=== PATIENT | female | born 1970 | race Caucasian/White ===

== ENCOUNTER 2019-12-15 18:51 | Inpatient (IN) | payer OTHER, SELFPAY ==
[2019-12-15] VITALS (48 sets, daily range): BP systolic 112–174; BP diastolic 58–116; PULSE 83–102; RESP 12–24; TEMP 36.9; O2SAT 92–98; BMI 44.4
--- NOTE | 2019-12-15 18:57 | ED_ITS ---
Entered by Ysabel Padilla, acting as scribe for Tisha Kaur MD, [facility] [place] H[place] - Psych General: Chief Complaint: Psychiatric Symptoms Stated Complaint: SI ATTEMPT Time Seen by Provider: 12/15/19 18:56 Source: patient and RN notes reviewed Mode of arrival: EMS Limitations: no limitations History of Present Illness: HPI Narrative: 49 yo female presents to ED with suicidal attempt. The patient states she has been trying to get SSD. She is in chronic pain every day. She said she cannot do anything for herself or her (cook, clean, bathe). She said her spouse has had multiple surgeries and she said her health is too much on him. She said she OD on her insulin - Humalog 120 units at 1730. She said she received her 3rd denial from SSD today and it pushed her over the edge. She said she is sick of the pain and worrying. She said she wanted to but she did volunteer to come over here and talk to somebody. complaint: suicidal ideation and feels depressed Onset (ago): hour(s) (2 (1730)) Duration: constant and getting worse History of same: No Relieving factors: none Exacerbating factors: none Context: significant life stressor and other (OD on Humalog) Associated psychiatric symptoms: depression and suicidal ideation Associated symptoms: Reports depression and suicidal ideation Treatments prior to arrival: none If self harm: admits thoughts of self harm, has plan, has acted on plan and intentional overdose Details of plan: overdose on Humalog 120 units at 1730 Review of Systems General: Reports: 10 or more systems reviewed and unremarkable except in HPI and below Const: Denies: fever, chills or body aches Eyes: Denies: change in vision or blurry vision ENMT: Denies: throat pain, enlarged tonsils, painful swallowing, hoarseness, mouth pain or swelling of lips/tongue Card: Reports: chest pain; Denies: palpitations, irregular heart rhythm, edema or swelling of feet/ankles Resp: Denies: shortness of breath, productive cough or non-productive cough GI: Denies: abdominal pain, nausea or vomiting : Denies: flank pain, difficulty urinating, painful urination, urinary frequency, urinary urgency or urinary hesitancy Musc: Denies: neck pain, back pain or extremity swelling Skin/Breast: Denies: rash, itching or redness Neuro: Denies: headache, numbness in extremities or weakness in extremities Psych: Reports: depression and suicidal ideation Endo: Denies: excessive urination PFSH ED PFSH: Social History Smoking and tobacco status: current every day smoker Physical Exam Const: COMMON NORMALS: no apparent distress, average body habitus, oriented x3, no limitations, healthy appearing, alert and well nourished HENMT: COMMON NORMALS: normocephalic, head/scalp atraumatic and moist oral mucous membranes HEAD & SCALP: normocephalic and atraumatic Eye: COMMON NORMALS: PERRL, EOMs intact bilaterally, conjunctivae normal and no scleral icterus CONJUNCTIVA: Yes conjunctivae normal PUPIL: Yes PERRL Neck/C-Spine: COMMON NORMALS: full ROM, supple, no meningeal signs, no JVD and no carotid bruits Chest: COMMONS NORMALS: inspection of chest normal and palpation of chest normal Resp: COMMON NORMALS: normal respiratory effort, no retractions, no use of ac cessory muscles, clear to auscultation bilaterally and percussion normal AUSCULTATION: clear to auscultation bilaterally PERCUSSION: percussion normal Cardio: COMMON NORMALS: no JVD, regular rate, regular rhythm, S1 normal heart sound, S2 normal heart sound, no gallops, no clicks, no murmurs, no rub and peripheral pulses 2+ throughout RATE: regular rate RHYTHM: regular rhythm HEART SOUNDS: S1 normal and S2 normal PERIPHERAL PULSES: pulses 2+ throughout GI: COMMON NORMALS: normal to inspection, nondistended, normoactive bowel sounds, soft to palpation, non-tender, no hepatosplenomegaly, no masses and no bruits PALPATION: Yes soft and Yes no hepatosplenomegaly : COMMON NORMALS: Yes no CVA tenderness BLADDER/KIDNEY EXAM: Yes no CVA tenderness Back/Pelvis: COMMON NORMALS: no CVA tenderness Extremity: COMMON NORMALS: normal to inspection, full ROM, normal capillary refill, no calf tenderness and no pedal edema Neuro: COMMON NORMALS: oriented x3 SENSORIUM/ORIENTATION: Yes alert MENINGEAL SIGNS: Yes no meningeal signs Skin: COMMON NORMALS: no rashes or lesions noted, no wounds, skin turgor normal, no jaundice, no petechiae and no mottling GENERAL SKIN EXAM: no rashes or lesions noted and turgor normal MDM - Psych MDM Narrative: Medical decision making narrative: 49 year old patient with a suicide attempt. She has a lot of social issues and today received a third rejection letter for disability. This was the final straw and she thought she would be better off . She therefore injected herself with 120 units of short acting insulin. She was hypoglycemic on arrival and was given intravenous dextrose. She also ate a meal here in the ED. She is medically cleared and admitted to the NPU for further evaluation and management. Medical Records: Attestation: I reviewed the patient's medical records. Lab Data: Attestation: I reviewed the patient's lab results. Labs: Lab Results 12/15/19 12/15/19 12/15/19 Range/Units 19:18 19:18 19:22 WBC 10.5 H (4.0-10.0) 10^3/ uL RBC 4.78 (4.1-5.3) 10^6/u L Hgb 11.1 L (11.5-15.3) g/dL Hct 38.3 (37.0-47.0) % MCV 80.1 L (81-99) fL MCH 23.2 L (28.0-34.0) pg MCHC 29.0 L (30.0-36.0) g/dL RDW 17.0 H (12.1-15.1) % Plt Count 357 (130-400) 10^3/c mm MPV 11.9 H (7.4-10.4) fL Neut % (Auto) 62.8 % Lymph % (Auto) 33.0 % Navarro % (Auto) 2.1 % Eos % (Auto) 1.0 % Baso % (Auto) 0.3 % Neut # (Auto) 6.6 (1.8-7.7) 10^3/u L Lymph # (Auto) 3.5 (0.8-4.8) 10^3/u L Navarro # (Auto) 0.2 (0.2-0.9) 10^3/u L Eos # (Auto) 0.1 (0.0-0.8) 10^3/u L Baso # (Auto) 0.0 (0.0-0.1) 10^3/u L Nucleated RBC % (a uto) 0 % Nucleated RBCs # 0.0 /100WBC Sodium 133 L (136-145) mmol/L Potassium 4.0 (3.5-5.1) mmol/L Chloride 95 L (98-107) mmol/L Carbon Dioxide 25 (22-29) mmol/L Anion Gap 17.0 (5-19) BUN 19 (6-20) mg/dL Creatinine 0.7 (0.5-0.9) mg/dL GFR Calculation 88.9 L (90-130) mL/min Glucose 107 (65-115) mg/dL POC Glucose 43 (70-110) mg/dL Calcium 9.9 (8.5-10.5) mg/dL Total Bilirubin 0.3 (0.15-1.2) mg/dL AST 18 (0-32) U/L ALT 20 (0-33) U/L Alkaline Phosphata se 177 H (35-105) IU/L Total Protein 7.9 (6.6-8.7) g/dL Albumin 4.7 (3.5-5.2) g/dL Globulin 3.2 (1.3-4.6) g/dL TSH 3.18 (0.27-4.20) uIU/ mL HCG, Qual (Negative) Urine Color (Yellow) Urine Appearance (CLEAR) Urine pH (5-7) Ur Specific Gravit y (1.005-1.030) Urine Protein (Negative) Urine Glucose (UA) (Normal) Urine Ketones (Negative) Urine Blood (Negative) Urine Nitrate (Negative) Urine Bilirubin (NEGATIVE) Urine Urobilinogen (Negative) mg/dL Ur Leukocyte Belkis ase (Negative) Urine RBC (0-2) /hpf Urine WBC (0-5) /hpf Ur Squamous Epith Cells (0-5) Urine Bacteria (NONE) Coarse Granular Ca sts /lpf Salicylates < 0.3 L (3-10) mg/dL Urine Opiates Scre en (Negative) ng/mL Acetaminophen < 5.0 L (10-30) ug/mL Ur Barbiturates Sc reen (Negative) ng/mL Ur Phencyclidine S crn (Negative) ng/mL Ur Amphetamines Sc reen (Negative) ng/mL U Benzodiazepines Scrn (Negative) ng/mL Urine Cocaine Scre en (Negative) ng/mL U Marijuana (THC) Screen (Negative) ng/mL Ethyl Alcohol < 10 (0-10) mg/dL 12/15/19 12/15/19 12/15/19 Range/Units 20:16 21:05 22:33 WBC (4.0-10.0) 10^3/ uL RBC (4.1-5.3) 10^6/u L Hgb (11.5-15.3) g/dL Hct (37.0-47.0) % MCV (81-99) fL MCH (28.0-34.0) pg MCHC (30.0-36.0) g/dL RDW (12.1-15.1) % Plt Count (130-400) 10^3/c mm MPV (7.4-10.4) fL Neut % (Auto) % Lymph % (Auto) % Navarro % (Auto) % Eos % (Auto) % Baso % (Auto) % Neut # (Auto) (1.8-7.7) 10^3/u L Lymph # (Auto) (0.8-4.8) 10^3/u L Navarro # (Auto) (0.2-0.9) 10^3/u L Eos # (Auto) (0.0-0.8) 10^3/u L Baso # (Auto) (0.0-0.1) 10^3/u L Nucleated RBC % (a uto) % Nucleated RBCs # /100WBC Sodium (136-145) mmol/L Potassium (3.5-5.1) mmol/L Chloride (98-107) mmol/L Carbon Dioxide (22-29) mmol/L Anion Gap (5-19) BUN (6-20) mg/dL Creatinine (0.5-0.9) mg/dL GFR Calculation (90-130) mL/min Glucose (65-115) mg/dL POC Glucose 44 160 (70-110) mg/dL Calcium (8.5-10.5) mg/dL Total Bilirubin (0.15-1.2) mg/dL AST (0-32) U/L ALT (0-33) U/L Alkaline Phosphata se (35-105) IU/L Total Protein (6.6-8.7) g/dL Albumin (3.5-5.2) g/dL Globulin (1.3-4.6) g/dL TSH (0.27-4.20) uIU/ mL HCG, Qual Negative (Negative) Urine Color (Yellow) Urine Appearance (CLEAR) Urine pH (5-7) Ur Specific Gravit y (1.005-1.030) Urine Protein (Negative) Urine Glucose (UA) (Normal) Urine Ketones (Negative) Urine Blood (Negative) Urine Nitrate (Negative) Urine Bilirubin (NEGATIVE) Urine Urobilinogen (Negative) mg/dL Ur Leukocyte Belkis ase (Negative) Urine RBC (0-2) /hpf Urine WBC (0-5) /hpf Ur Squamous Epith Cells (0-5) Urine Bacteria (NONE) Coarse Granular Ca sts /lpf Salicylates (3-10) mg/dL Urine Opiates Scre en (Negative) ng/mL Acetaminophen (10-30) ug/mL Ur Barbiturates Sc reen (Negative) ng/mL Ur Phencyclidine S crn (Negative) ng/mL Ur Amphetamines Sc reen (Negative) ng/mL U Benzodiazepines Scrn (Negative) ng/mL Urine Cocaine Scre en (Negative) ng/mL U Marijuana (THC) Screen (Negative) ng/mL Ethyl Alcohol (0-10) mg/dL 12/15/19 12/15/19 12/15/19 Range/Units 22:33 22:33 22:37 WBC (4.0-10.0) 10^3/ uL RBC (4.1-5.3) 10^6/u L Hgb (11.5-15.3) g/dL Hct (37.0-47.0) % MCV (81-99) fL MCH (28.0-34.0) pg MCHC (30.0-36.0) g/dL RDW (12.1-15.1) % Plt Count (130-400) 10^3/c mm MPV (7.4-10.4) fL Neut % (Auto) % Lymph % (Auto) % Navarro % (Auto) % Eos % (Auto) % Baso % (Auto) % Neut # (Auto) (1.8-7.7) 10^3/u L Lymph # (Auto) (0.8-4.8) 10^3/u L Navarro # (Auto) (0.2-0.9) 10^3/u L Eos # (Auto) (0.0-0.8) 10^3/u L Baso # (Auto) (0.0-0.1) 10^3/u L Nucleated RBC % (a uto) % Nucleated RBCs # /100WBC Sodium (136-145) mmol/L Potassium (3.5-5.1) mmol/L Chloride (98-107) mmol/L Carbon Dioxide (22-29) mmol/L Anion Gap (5-19) BUN (6-20) mg/dL Creatinine (0.5-0.9) mg/dL GFR Calculation (90-130) mL/min Glucose (65-115) mg/dL POC Glucose 181 (70-110) mg/dL Calcium (8.5-10.5) mg/dL Total Bilirubin (0.15-1.2) mg/dL AST (0-32) U/L ALT (0-33) U/L Alkaline Phosphata se (35-105) IU/L Total Protein (6.6-8.7) g/dL Albumin (3.5-5.2) g/dL Globulin (1.3-4.6) g/dL TSH (0.27-4.20) uIU/ mL HCG, Qual (Negative) Urine Color Straw (Yellow) Urine Appearance Clear (CLEAR) Urine pH 5 (5-7) Ur Specific Gravit y 1.010 (1.005-1.030) Urine Protein Neg (Negative) Urine Glucose (UA) 4+ H (Normal) Urine Ketones Negative (Negative) Urine Blood Trace H (Negative) Urine Nitrate Negative (Negative) Urine Bilirubin Neg (NEGATIVE) Urine Urobilinogen Norm (Negative) mg/dL Ur Leukocyte Belkis ase Negative (Negative) Urine RBC Rare (0-2) /hpf Urine WBC 0-4 H (0-5) /hpf Ur Squamous Epith Cells 5-10 H (0-5) Urine Bacteria 1+ H (NONE) Coarse Granular Ca sts Rare /lpf Salicylates (3-10) mg/dL Urine Opiates Scre en Negative (Negative) ng/mL Acetaminophen (10-30) ug/mL Ur Barbiturates Sc reen Negative (Negative) ng/mL Ur Phencyclidine S crn Negative (Negative) ng/mL Ur Amphetamines Sc reen Negative (Negative) ng/mL U Benzodiazepines Scrn Positive H (Negative) ng/mL Urine Cocaine Scre en Negative (Negative) ng/mL U Marijuana (THC) Screen Negative (Negative) ng/mL Ethyl Alcohol (0-10) mg/dL Discharge Plan Discharge Patient Disposition: Admitted As Inpatient Clinical Impression: Suicide attempt by drug overdose Condition: Stable Referrals: Eugene Caldwell DO [Family Provider] - Coding Level of Care Code ED Program Management Professional for Chg Fwd Exam Comprehensive The documentation recorded by the Randy adler Valerie R, accurately reflects the service I personally performed and the decisions made by , Tisha Kaur MD, [facility] [place] Dec 15, 2019 18:51
--- NOTE | 2019-12-15 19:04 | PC.NURSE ---
PATIENT STATES SHE OVERDOSED ON HER HUMALOG INSULIN, 120 UNITS, HOPING TO BEFORE ANYONE GOT THERE TO FIND HER. PATIENT STATES HER CAME HOME AND SHE TOLD HIM WHAT SHE HAD DONE AND HE CALLED THE AMBULANCE FOR HER. PATIENT STATES SHE GOT A THIRD DENIAL LETTER FOR SOCIAL SECURITY TODAY. WHEN ASKED IF SHE WANTS TO HURT HERSELF STILL PATIENT STATES AT THIS POINT I AM JUST TOO WEAK . PATIENT STATES SHE PROBABLY WOULD NOT WANT TO HURT HERSELF ANYMORE WHEN ASKED IF SHE WASN'T FEELING TOO WEAK IF SHE WOULD HURT HERSELF.
--- NOTE | 2019-12-15 19:29 | PC.NURSE ---
PATIENTS BEDSIDE BLOOD GLUCOSE TEST PERFORMED BY NURSE AND VALUE READ OF 43. HCP NOTIFIED AND PATIENT MEDICATED ACCORDINGLY PER HCP VERBAL ORDERS
--- NOTE | 2019-12-15 19:33 | PC.NURSE ---
PATIENT GIVEN 25ML D50 PER HCP VERBAL ORDER.
[2019-12-15 19:37] LABS: Glucose Point of Care 43 mg/dL (70-110)
--- NOTE | 2019-12-15 19:48 | ECG_ITS ---
Measurements Intervals [place] Rate: 87 P: 23 SD: 158 QRS: 38 QRSD: 104 T: 27 QT: 391 QTc: 472 SINUS RHYTHM No previous ECG available for comparison Electronically Signed On 12-16-2019 13:21:44 IMPLEMENTATION ENGINEER by Cara Recinos M.D. [email or web address]
[2019-12-15 20:12] LABS: Basophils % 0.3 %; Eosinophils # 0.1 10^3/uL (0.0-0.8); Hematocrit 38.3 % (37.0-47.0); Hemoglobin 11.1 g/dL (11.5-15.3); Lymphocytes # 3.5 10^3/uL (0.8-4.8); Mean Corpuscular Hemoglobin 23.2 pg (28.0-34.0); Mean Corpuscular Volume 80.1 fL (81-99); Mean Platelet Volume 11.9 fL (7.4-10.4); Monocytes # 0.2 10^3/uL (0.2-0.9); Monocytes % 2.1 %; Neutrophils # 6.6 10^3/uL (1.8-7.7); Neutrophils % 62.8 %; Nucleated Red Blood Cells % 0 %; Platelet Count 357 10^3/cmm (130-400); Red Blood Count 4.78 10^6/uL (4.1-5.3); White Blood Count 10.5 10^3/uL (4.0-10.0)
--- NOTE | 2019-12-15 20:19 | PC.NURSE ---
BEDSIDE BLOOD GLUCOSE TAKEN BY NURSE, VALUE 44. HCP NOTIFIED
[2019-12-15] MEDS: dextrose 10% 1,000 ML 100 ML IV (20:23)
[2019-12-15 20:28] LABS: Glucose Point of Care 44 mg/dL (70-110)
[2019-12-15 20:37] LABS: Alanine Aminotransferase 20 U/L (0-33); Albumin Level 4.7 g/dL (3.5-5.2); Alkaline Phosphatase 177 IU/L (35-105); Aspartate Amino Transferase 18 U/L (0-32); Blood Urea Nitrogen 19 mg/dL (6-20); Calcium 9.9 mg/dL (8.5-10.5); Carbon Dioxide 25 mmol/L (22-29); Chloride 95 mmol/L (98-107); Creatinine Clr Calc Pharmacy 113.7984; Globulin 3.2 g/dL (1.3-4.6); Glomerular Filtration Rate 88.9 mL/min (90-130); Glucose 107 mg/dL (65-115); Sodium 133 mmol/L (136-145); Thyroid Stimulating Hormone 3.18 uIU/mL (0.27-4.20); Total Bilirubin 0.3 mg/dL (0.15-1.2); Total Protein 7.9 g/dL (6.6-8.7)
--- NOTE | 2019-12-15 21:10 | PC.NURSE ---
PATIENT AMBULATED TO BATHROOM WITH SITTER TO TRY TO GIVE URINE SAMPLE CLEAN CATCH
[2019-12-15 21:14] LABS: Glucose Point of Care 160 mg/dL (70-110)
[2019-12-15 21:31] LABS: Acetaminophen < 5.0 ug/mL (10-30); Alcohol Level < 10 mg/dL (0-10); Salicylate < 0.3 mg/dL (3-10)
--- NOTE | 2019-12-15 22:30 | PC.NURSE ---
IN BATHROOM ATTEMPTING TO PEE
--- NOTE | 2019-12-15 22:38 | PC.NURSE ---
BG 181 TAKEN AT BEDSIDE BY NURSE
[2019-12-15 22:42] LABS: Glucose Point of Care 181 mg/dL (70-110)
[2019-12-15 22:43] LABS: Add Urine Microscopic? YES; Bilirubin Urine Neg (NEGATIVE); Blood Urine Trace (Negative); Glucose Urine UA 4+ (Normal); Ketones Urine Negative (Negative); Leukocyte Esterase Urine Negative (Negative); Nitrate Urine Negative (Negative); Protein Urine Neg (Negative); Urine Appearance Clear (CLEAR); Urine Color Straw (Yellow); Urobilinogen Urine Norm (Negative); pH Urine 5 (5-7)
[2019-12-15 22:45] LABS: HCG Qualitative Urine. Negative (Negative)
[2019-12-15 22:50] LABS: Add Urine Culture? No; Amphetamines Screen Urine Negative (Negative); Bacteria Urine 1+; Barbiturates Screen Urine Negative (Negative); Benzodiazepines Screen Urine Positive (Negative); Coarse Granular Casts Urine RARE /lpf; Cocaine Screen Urine Negative (Negative); PCP Screen Urine Negative (Negative); RBC Urine RARE /hpf (0-2); THC Screen Urine Negative (Negative); WBC Urine 0-4 /hpf (0-5)
[2019-12-15 22:51] LABS: Opiate Screen Urine Negative (Negative)
[2019-12-16 00:40] VITALS: BP 138/79; PULSE 95; RESP 18; TEMP 36.7; O2SAT 100
[2019-12-16 06:00] VITALS: BP 169/96; PULSE 115; RESP 17; TEMP 36.8; O2SAT 91
[2019-12-16 07:16] LABS: Glucose Point of Care 207 mg/dL (70-110)
[2019-12-16] MEDS: metformin 500 mg Tablet 1000 MG PO ×2 (07:57→16:53)
[2019-12-16] MEDS: acetaminophen 325 mg Tablet 650 MG PO (07:59)
[2019-12-16] MEDS: lisinopril 20 mg Tablet 40 MG PO (09:26)
[2019-12-16] MEDS: pantoprazole DR 40 mg Tablet PO (09:26)
[2019-12-16] MEDS: buPROPion XL (24 HR) 300 mg Tablet PO (09:26)
[2019-12-16] MEDS: duloxetine 60 mg Capsule PO (09:26)
[2019-12-16] MEDS: atorvastatin 40 mg Tablet 20 MG PO (09:27)
[2019-12-16] MEDS: metoprolol succinate ER (24 HR) 100 mg Tablet PO (09:53)
[2019-12-16 11:43] LABS: Glucose Point of Care 200 mg/dL (70-110)
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
[2019-12-16 14:00] VITALS: BP 114/76; PULSE 82; RESP 20; TEMP 37.1; O2SAT 100
[2019-12-16] MEDS: fixodent 39 gm Tube 1 APPLIC DENTAL (16:05)
[2019-12-16 16:49] LABS: Glucose Point of Care 189 mg/dL (70-110)
[2019-12-16 22:00] VITALS: BP 121/71; PULSE 82; RESP 17; TEMP 36.6; O2SAT 94
[2019-12-17 06:00] VITALS: BP 123/81; PULSE 92; RESP 18; TEMP 36.6; O2SAT 96
[2019-12-17 06:49] LABS: Glucose Point of Care 211 mg/dL (70-110)
[2019-12-17] MEDS: metformin 500 mg Tablet 1000 MG PO ×2 (07:47→18:07)
[2019-12-17] MEDS: atorvastatin 40 mg Tablet 20 MG PO (10:29)
[2019-12-17] MEDS: duloxetine 60 mg Capsule PO (10:31)
[2019-12-17] MEDS: buPROPion XL (24 HR) 300 mg Tablet PO (10:31)
[2019-12-17] MEDS: lisinopril 20 mg Tablet 40 MG PO (10:31)
[2019-12-17] MEDS: metoprolol succinate ER (24 HR) 100 mg Tablet PO (10:32)
[2019-12-17] MEDS: pantoprazole DR 40 mg Tablet PO (10:32)
[2019-12-17 12:06] LABS: Glucose Point of Care 253 mg/dL (70-110)
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
[2019-12-17 13:57] VITALS: BP 114/74; PULSE 90; RESP 18; TEMP 36.9; O2SAT 97
[2019-12-17 16:48] LABS: Glucose Point of Care 210 mg/dL (70-110)
[2019-12-17 22:00] VITALS: BP 138/82; PULSE 88; RESP 17; TEMP 36.6; O2SAT 97
[2019-12-18 06:00] VITALS: BP 160/83; PULSE 97; RESP 18; TEMP 36.6; O2SAT 94
[2019-12-18 06:45] LABS: Glucose Point of Care 273 mg/dL (70-110)
--- NOTE | 2019-12-18 07:05 | PM.NPN ---
Subjective NPU Subjective: Interval history: Jamilah presented today reporting that things are going better. She reports that the medication made her stomach a little upset. Otherwise she is tolerating the introduction of the medication. She reports that she is feeling better and that she is denying any major issues. She reports that she is eating and sleeping fine. We discussed the risks, benefits and alternatives of discharging tomorrow and she understood and agreed to proceed as is documented in this note. Mental Status Exam MSE Comments: This is an obese, versus morbidly obese, white female, with adequate dress, grooming, and eye contact. No abnormal movements. Cooperative with exam in no acute distress. Speech was normal rate and volume. Mood described as much better affect congruent. Thought process, organized. Thought content: patient denied any suicidal or homicidal ideation, there were no delusions reported or noted, patient denied any auditory or visual hallucinations. Attention, concentration, and memory appeared intact but were not formally tested. Alert and oriented times three. Insight and judgment are fair and improving. Vitals/I&O/Wt Last Vital Signs Temperature 97.8, pulse 97, blood pressure 160/83, respirations 18, pulse ox 94%. Data NPU : 12/15/19 19:18 12/15/19 19:18 A&P Assessment and plan (1) Adjustment disorder with mixed disturbance of emotions and conduct: Status: Acute Code(s): F43.25 - Adjustment disorder with mixed disturbance of emotions and conduct (2) Major depressive disorder: Status: Acute Code(s): F32.9 - Major depressive disorder, single episode, unspecified Additional A&P Information This is a 49-year-old white female with a long history of medical comorbidities and history of childhood trauma presents status post suicide attempts with concerns related to finances and not getting disability, her 's health and the disintegration of her relationship with her children and grandchildren. 1. Continue current medication. 2. Encourage individual, group and milieu therapy. 3. Continue every 15 minute checks for safety. 4. Encourage ongoing mental health treatment after discharge including a therapist. Involuntary Hold Information 96 Hour Hold: 96 Hour Involuntary Admission: No Attestations NPU Medical Necessity Statement*: Inpatient hospitalization is medically necessary in the clinically appropriate intervention at this time. We will initiate and monitor medications adjusting as indicated. Plan for discharge tomorrow. Coding Level of Care Code Acute Operations Lieutenant for Prabhakar De Anda Diagnoses Adjustment disorder with mixed disturbance of emotions and conduct F43.25 Major depressive disorder F32.9
[2019-12-18] MEDS: metformin 500 mg Tablet 1000 MG PO ×2 (08:27→17:35)
[2019-12-18] MEDS: atorvastatin 40 mg Tablet 20 MG PO (08:27)
[2019-12-18] MEDS: buPROPion XL (24 HR) 150 mg Tablet 450 MG PO (08:27)
[2019-12-18] MEDS: pantoprazole DR 40 mg Tablet PO (08:30)
[2019-12-18] MEDS: duloxetine 60 mg Capsule PO (08:30)
[2019-12-18] MEDS: ARIPiprazole 10 mg Tablet 5 MG PO (08:32)
[2019-12-18] MEDS: lisinopril 20 mg Tablet 40 MG PO (08:32)
[2019-12-18] MEDS: metoprolol succinate ER (24 HR) 100 mg Tablet PO (09:00)
[2019-12-18 11:33] LABS: Glucose Point of Care 266 mg/dL (70-110)
[2019-12-18 14:00] VITALS: BP 87/53; PULSE 86; RESP 18; TEMP 36.7; O2SAT 96
[2019-12-18 16:54] LABS: Glucose Point of Care 222 mg/dL (70-110)
[2019-12-18 20:23] LABS: Glucose Point of Care 244 mg/dL (70-110)
[2019-12-18 20:25] VITALS: BP 114/76; PULSE 82; RESP 18; TEMP 36.6; O2SAT 99
[2019-12-19] MEDS: acetaminophen 325 mg Tablet 650 MG PO (02:27)
--- NOTE | 2019-12-19 02:29 | PC.NURSE ---
Tylenol given for back and neck pain rated at 7/10.
[2019-12-19 05:51] VITALS: BP 154/93; PULSE 107; RESP 19; TEMP 36.6; O2SAT 995
[2019-12-19 06:23] LABS: Glucose Point of Care 248 mg/dL (70-110)
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
[2019-12-19 07:37] VITALS: BP 154/93; PULSE 107; RESP 19; TEMP 36.6; O2SAT 995
[2019-12-19] MEDS: fixodent 39 gm Tube 1 APPLIC DENTAL (07:51)
[2019-12-19] MEDS: metformin 500 mg Tablet 1000 MG PO (08:27)
[2019-12-19] MEDS: ARIPiprazole 10 mg Tablet 5 MG PO (08:27)
[2019-12-19] MEDS: atorvastatin 40 mg Tablet 20 MG PO (08:29)
[2019-12-19] MEDS: buPROPion XL (24 HR) 150 mg Tablet 450 MG PO (08:30)
[2019-12-19] MEDS: duloxetine 60 mg Capsule PO (08:30)
[2019-12-19] MEDS: lisinopril 20 mg Tablet 40 MG PO (08:31)
[2019-12-19] MEDS: pantoprazole DR 40 mg Tablet PO (08:32)
[2019-12-19] MEDS: metoprolol succinate ER (24 HR) 100 mg Tablet PO (08:32)
== END 2019-12-19 10:29 | disposition home or self-care (01) | DRG 881 ==
LOC: ER 23:07 → NP 23:26
PROVIDERS: Admitting Provider Psychiatry & Neurology Psychiatry; Emergency Provider Family Medicine; Family Provider Family Medicine; Visit Provider Psychiatry & Neurology Psychiatry
DX: F32.9 Major depressive disorder, single episode, unspecified (principal); Z68.41 Body mass index [BMI] 40.0-44.9, adult; F43.25 Adjustment disorder with mixed disturbance of emotions and conduct; Z79.899 Other long term (current) drug therapy; Z79.4 Long term (current) use of insulin; Z88.8 Allergy status to other drugs, medicaments and biological substances; E66.01 Morbid (severe) obesity due to excess calories
CPT/HCPCS: 12345; 36416; 80053; 80307; 81001; 81025; 82962; 84443; 85025; 93005; 96372; 96374; 96375; 99285; J1815; J7799

== ENCOUNTER → 2020-01-09 08:18 | Outpatient (BNVA) | payer OTHER, SELFPAY | PROVIDERS: Family Provider Family Medicine; Visit Provider Counselor Professional | DX: F33.2 Major depressive disorder, recurrent severe without psychotic features (principal); F41.1 Generalized anxiety disorder | CPT/HCPCS: 90834 ==

== ENCOUNTER → 2020-01-16 08:00 | Outpatient (BNVA) | payer OTHER, SELFPAY | PROVIDERS: Family Provider Family Medicine; Visit Provider Counselor Professional | DX: F33.2 Major depressive disorder, recurrent severe without psychotic features (principal); F41.1 Generalized anxiety disorder | CPT/HCPCS: 90834 ==

== ENCOUNTER → 2020-01-23 08:00 | Outpatient (BNVA) | payer OTHER, SELFPAY | PROVIDERS: Family Provider Family Medicine; Visit Provider Counselor Professional | DX: F33.2 Major depressive disorder, recurrent severe without psychotic features (principal); F43.12 Post-traumatic stress disorder, chronic | CPT/HCPCS: 90834 ==

== ENCOUNTER → 2020-02-11 14:07 | Outpatient (BNVA) | payer OTHER, SELFPAY | PROVIDERS: Family Provider Family Medicine; Visit Provider Counselor Professional | DX: F33.2 Major depressive disorder, recurrent severe without psychotic features (principal); F43.12 Post-traumatic stress disorder, chronic | CPT/HCPCS: 90834 ==

== ENCOUNTER → 2020-02-25 08:10 | Outpatient (BNVA) | payer OTHER, SELFPAY | PROVIDERS: Family Provider Family Medicine; Visit Provider Counselor Professional | DX: F43.12 Post-traumatic stress disorder, chronic (principal); F33.2 Major depressive disorder, recurrent severe without psychotic features | CPT/HCPCS: 90834 ==

== ENCOUNTER → 2020-03-05 13:29 | Outpatient (BNVA) | payer OTHER, SELFPAY | PROVIDERS: Family Provider Family Medicine; Visit Provider Psychiatry & Neurology Psychiatry | DX: F33.2 Major depressive disorder, recurrent severe without psychotic features (principal); F41.1 Generalized anxiety disorder; F17.200 Nicotine dependence, unspecified, uncomplicated | CPT/HCPCS: 99204 ==

== ENCOUNTER → 2020-03-10 08:18 | Outpatient (BNVA) | payer OTHER, SELFPAY | PROVIDERS: Family Provider Family Medicine; Visit Provider Counselor Professional | DX: F43.12 Post-traumatic stress disorder, chronic (principal); F33.2 Major depressive disorder, recurrent severe without psychotic features | CPT/HCPCS: 90834 ==

== ENCOUNTER → 2020-03-24 08:03 | Outpatient (BNVA) | payer OTHER, SELFPAY | PROVIDERS: Family Provider Family Medicine; Visit Provider Counselor Professional | DX: F43.12 Post-traumatic stress disorder, chronic (principal); F33.2 Major depressive disorder, recurrent severe without psychotic features | CPT/HCPCS: 90834 ==

== ENCOUNTER → 2020-04-07 08:05 | Outpatient (BNVA) | payer OTHER, SELFPAY | PROVIDERS: Family Provider Family Medicine; Visit Provider Counselor Professional | DX: F43.12 Post-traumatic stress disorder, chronic (principal); F33.2 Major depressive disorder, recurrent severe without psychotic features | CPT/HCPCS: 90834 ==

== ENCOUNTER → 2020-05-10 08:09 | Outpatient (BNVA) | payer OTHER, SELFPAY | PROVIDERS: Family Provider Family Medicine; Visit Provider Counselor Professional | DX: F41.1 Generalized anxiety disorder (principal); F33.2 Major depressive disorder, recurrent severe without psychotic features | CPT/HCPCS: 90834 ==

== ENCOUNTER → 2020-06-10 08:03 | Outpatient (BNVA) | payer OTHER, SELFPAY | PROVIDERS: Family Provider Family Medicine; Visit Provider Counselor Professional | DX: F41.1 Generalized anxiety disorder (principal); F33.2 Major depressive disorder, recurrent severe without psychotic features | CPT/HCPCS: 90832 ==

== ENCOUNTER → 2020-07-12 08:05 | Outpatient (BNVA) | payer OTHER, SELFPAY | PROVIDERS: Family Provider Family Medicine; Visit Provider Counselor Professional | DX: F33.2 Major depressive disorder, recurrent severe without psychotic features (principal); F41.1 Generalized anxiety disorder | CPT/HCPCS: 90832 ==

== ENCOUNTER → 2020-08-09 09:08 | Outpatient (BNVA) | payer OTHER, SELFPAY | PROVIDERS: Family Provider Family Medicine; Visit Provider Counselor Professional | DX: F41.1 Generalized anxiety disorder (principal); F33.2 Major depressive disorder, recurrent severe without psychotic features | CPT/HCPCS: 90834 ==

== ENCOUNTER → 2020-09-20 08:10 | Outpatient (BNVA) | payer OTHER, SELFPAY | PROVIDERS: Family Provider Family Medicine; Visit Provider Counselor Professional | DX: F41.1 Generalized anxiety disorder (principal); F33.2 Major depressive disorder, recurrent severe without psychotic features | CPT/HCPCS: 90832 ==

== ENCOUNTER → 2020-10-27 09:00 | Outpatient (BNVA) | payer OTHER, SELFPAY | PROVIDERS: Family Provider Family Medicine; Visit Provider Counselor Professional | DX: F41.1 Generalized anxiety disorder (principal); F33.2 Major depressive disorder, recurrent severe without psychotic features | CPT/HCPCS: 90832 ==

== ENCOUNTER → 2020-12-02 09:04 | Outpatient (BNVA) | payer OTHER, SELFPAY | PROVIDERS: Family Provider Family Medicine; Visit Provider Counselor Professional | DX: F41.1 Generalized anxiety disorder (principal); F33.2 Major depressive disorder, recurrent severe without psychotic features | CPT/HCPCS: 90832 ==

== ENCOUNTER → 2020-12-16 08:39 | Outpatient (BNVA) | payer OTHER, SELFPAY | PROVIDERS: Family Provider Family Medicine; Visit Provider Counselor Professional | DX: F33.2 Major depressive disorder, recurrent severe without psychotic features (principal); F41.1 Generalized anxiety disorder | CPT/HCPCS: 90791 ==

== ENCOUNTER → 2021-01-13 09:11 | Outpatient (BNVA) | payer OTHER, SELFPAY | PROVIDERS: Family Provider Family Medicine; Visit Provider Counselor Professional | DX: F41.1 Generalized anxiety disorder (principal); F33.2 Major depressive disorder, recurrent severe without psychotic features | CPT/HCPCS: 90832 ==

== ENCOUNTER → 2021-02-10 09:06 | Outpatient (BNVA) | payer OTHER, SELFPAY | PROVIDERS: Family Provider Family Medicine; Visit Provider Counselor Professional | DX: F41.1 Generalized anxiety disorder (principal); F33.2 Major depressive disorder, recurrent severe without psychotic features | CPT/HCPCS: 90832 ==

== ENCOUNTER → 2021-02-14 09:37 | Outpatient (BNVA) | payer OTHER, SELFPAY | PROVIDERS: Family Provider Family Medicine; Visit Provider Registered Nurse | DX: F41.1 Generalized anxiety disorder (principal); F33.2 Major depressive disorder, recurrent severe without psychotic features; F43.25 Adjustment disorder with mixed disturbance of emotions and conduct; F17.200 Nicotine dependence, unspecified, uncomplicated; Z79.4 Long term (current) use of insulin; Z79.899 Other long term (current) drug therapy | CPT/HCPCS: 36415; 80061; 82306; 83036 ==

== ENCOUNTER → 2021-02-18 09:03 | Outpatient (BNVA) | payer OTHER, SELFPAY | PROVIDERS: Family Provider Family Medicine; Visit Provider Counselor Professional | DX: F41.1 Generalized anxiety disorder (principal); F33.2 Major depressive disorder, recurrent severe without psychotic features | CPT/HCPCS: 90832 ==

== ENCOUNTER → 2021-03-10 09:54 | Outpatient (BNVA) | payer OTHER, SELFPAY | PROVIDERS: Family Provider Family Medicine; Visit Provider Counselor Professional | DX: F41.1 Generalized anxiety disorder (principal); F33.2 Major depressive disorder, recurrent severe without psychotic features | CPT/HCPCS: 90832 ==

== ENCOUNTER 2021-10-10 12:00 | Outpatient (CLI) | payer OTHER, SELFPAY | END 2021-10-11 11:53 | disposition home or self-care (01) | LOC: SLEEP 10-25 09:15 | PROVIDERS: Family Provider Family Medicine; Visit Provider Registered Nurse | DX: G47.10 Hypersomnia, unspecified (principal) | CPT/HCPCS: G0399 ==

== ENCOUNTER → 2022-01-11 10:37 | Outpatient (BNVA) | payer OTHER, SELFPAY | PROVIDERS: Family Provider Family Medicine; Visit Provider Registered Nurse | DX: Z79.899 Other long term (current) drug therapy (principal) | CPT/HCPCS: 80053; 80061; 82306; 82607; 83036; 84443; 85025 ==

== ENCOUNTER → 2022-12-13 13:56 | Outpatient (BNVA) | payer OTHER, SELFPAY | PROVIDERS: Family Provider Family Medicine; PCP Family Medicine; Visit Provider Psychiatry & Neurology Neurology | DX: Z79.899 Other long term (current) drug therapy (principal) | CPT/HCPCS: 80061; 83036 ==

== ENCOUNTER → 2024-02-28 08:43 | Outpatient (BNVA) | payer MEDICARE, SELFPAY ==
[2023-01-03 11:17] VITALS: BP 149/89; BMI 42.1
== END ==
PROVIDERS: Family Provider Family Medicine; PCP Family Medicine; Referring Provider Family Medicine; Visit Provider Anesthesiology Pain Medicine
DX: F11.90 Opioid use, unspecified, uncomplicated (principal); G89.29 Other chronic pain; M54.16 Radiculopathy, lumbar region
CPT/HCPCS: 99205

== ENCOUNTER → 2024-04-07 17:09 | Outpatient (BNVA) | payer MEDICARE, SELFPAY ==
[2023-01-03 11:17] VITALS: BP 149/89; BMI 42.1
== END ==
PROVIDERS: Family Provider Family Medicine; PCP Family Medicine; Visit Provider Psychiatry & Neurology Psychiatry
DX: Z79.899 Other long term (current) drug therapy (principal)
CPT/HCPCS: 80053; 80061; 83036; 83721; 84443; 85025

== ENCOUNTER 2024-08-11 15:14 | Outpatient (CLI) | payer MEDICARE, SELFPAY ==
[2024-04-09 11:15] VITALS: BP 133/79; BMI 41.3
--- NOTE | 2024-08-11 15:30 | CT_ITS ---
WS: [id number] LDCT LUNG CANCER SCREENING HISTORY: screening for lung cancer; quit 2019; 44pk yr hx TECHNIQUE: Axial imaging performed from the apices to 1 cm below the costophrenic angles. Coronal and sagittal reformats are submitted with axial MIP series. All CT scans at [facility] use at least one of these dose optimization techniques: automated exposure control; mA and/or kV adjustment per patient size (includes targeted exams where dose is matched to clinical indication); or iterativ e reconstruction. DLP: 193.37 mGy.cm DIvol: Mean CTDIvol: 4.70 (mGy) COMPARISON: None available. Diagnostic quality: Satisfactory Lungs: No pulmonary mass or nodule. Tiny micronodule at the LEFT lung apex. No endobronchial lesions. Heart: Normal size heart with no pericardial effusion.. Other findings: Minimal atherosclerosis aorta. No mediastinal or hilar adenopathy. Mild hepatic steat osis. Prior cholecystectomy. Mild thickening/nodularity LEFT adrenal gland. CT/CT lung screening [id number] IMPRESSION: LUNG-RADS: 1-Negative FOLLOW UP: 12 Month: Continue annual screening with LDCT OTHER FINDINGS (S MODIFIER): None.
== END 2024-08-11 15:15 | disposition home or self-care (01) ==
LOC: RAD 15:15
PROVIDERS: PCP Family Medicine; Visit Provider Family Medicine
DX: Z12.2 Encounter for screening for malignant neoplasm of respiratory organs (principal); F17.211 Nicotine dependence, cigarettes, in remission; Z90.49 Acquired absence of other specified parts of digestive tract
CPT/HCPCS: 71271

== ENCOUNTER → 2024-08-25 17:38 | Outpatient (BNVA) | payer MEDICARE, SELFPAY ==
[2024-04-09 11:15] VITALS: BP 133/79; BMI 41.3
== END ==
PROVIDERS: PCP Family Medicine; Visit Provider Emergency Medicine
DX: R81 Glycosuria (principal); R30.0 Dysuria
CPT/HCPCS: 81000; 87086

== ENCOUNTER → 2025-04-27 15:26 | Outpatient (BNVA) | payer MEDICARE, SELFPAY ==
[2024-04-09 11:15] VITALS: BP 133/79; BMI 41.3
== END ==
PROVIDERS: PCP Family Medicine; Visit Provider Family Medicine
DX: I10 Essential (primary) hypertension (principal); I25.10 Atherosclerotic heart disease of native coronary artery without angina pectoris; E78.2 Mixed hyperlipidemia; E66.01 Morbid (severe) obesity due to excess calories; Z68.42 Body mass index [BMI] 45.0-49.9, adult; E11.9 Type 2 diabetes mellitus without complications
CPT/HCPCS: 80053; 80061; 83036; 84439; 84443; 85025

== ENCOUNTER 2025-08-14 10:54 | Outpatient (CLI) | payer MEDICARE, SELFPAY ==
[2024-04-09 11:15] VITALS: BP 133/79; BMI 41.3
--- NOTE | 2025-08-14 11:00 | CT_ITS ---
WS: [id number] LDCT LUNG CANCER SCREENING HISTORY: screening; quit 6yrs; TECHNIQUE: Axial imaging performed from the apices to 1 cm below the costophrenic angles. Coronal and sagittal reformats are submitted with axial MIP series. All CT scans at [facility] use at least one of these dose optimization techniques: automated exposure control; mA and/or kV adjustment per patient size (includes targeted exams where dose is matched to clinical indication); or iterative reconstruction. DLP: 177.11 mGy.cm DIvol: Mean CTDIvol: 4.80 (mGy) COMPARISON: 08/11/2024 Diagnostic quality: Satisfactory Lungs: Mild pulmonary hyperexpansion. 2 mm nodule periphery RIGHT lower lobe. Subpleural nodule measuring 3 mm in the RIGHT middle lobe. This nodule was present on the prior study without change. This nodule is better seen today due to slice selection. 4 mm nodule identified along the short fissure. These are typically benign. Heart: Normal size heart with no pericardial effusion.. Other findings: Very mild atherosclerosis aorta.. No mediastinal or hilar adenopathy. Normal size pulmonary artery. Small hiatal hernia. Hepatic steatosis. Incompletely visualized adrenal glands. Very slight thickening of the LEFT adrenal gland is stable. CT/CT lung screening [id number] IMPRESSION: LUNG-RADS: 2-Benign Appearance or Behavior FOLLOW UP: 12 Month: Continue annual screening with LDCT OTHER FINDINGS (S MODIFIER): None.
== END 2025-08-14 10:55 | disposition home or self-care (01) ==
LOC: RAD 10:55
PROVIDERS: PCP Family Medicine; Visit Provider Family Medicine
DX: Z12.2 Encounter for screening for malignant neoplasm of respiratory organs (principal); F17.211 Nicotine dependence, cigarettes, in remission; J98.4 Other disorders of lung; I70.0 Atherosclerosis of aorta; K44.9 Diaphragmatic hernia without obstruction or gangrene; K76.0 Fatty (change of) liver, not elsewhere classified; E27.8 Other specified disorders of adrenal gland
CPT/HCPCS: 71271